=== PATIENT | male | born 1995 | race Caucasian/White ===

== ENCOUNTER 2021-12-18 16:27 | Inpatient (IN) | payer OTHER ==
[~2021-12-18] VITALS: Ht 167.6 cm; Wt 69.0 kg
[2021-12-18 18:41] LABS: BASOPHILS % (AUTO) 0.5 % (0.0-2.0); EOSINOPHILS % (AUTO) 0.9 % (1.0-6.0); HEMATOCRIT 41.1 % (41-53); HEMOGLOBIN 13.7 g/dL (13.5-17.5); LYMPHOCYTES # (AUTO) 1.8 K/uL (1.0-4.8); LYMPHOCYTES % (AUTO) 21.2 % (22.0-44.0); MEAN CORPUSCULAR HEMOGLOBIN 28.3 pg (26.0-34.0); MEAN CORPUSCULAR HGB CONC 33.3 G/dL (31.0-37.0); MEAN CORPUSCULAR VOLUME 85 fL (80-100); MONOCYTES # (AUTO) 1.5 K/uL (0.1-1.0); MONOCYTES % (AUTO) 16.8 % (2.0-9.0); NEUTROPHILS # (AUTO) 5.2 K/uL (1.8-7.7); NEUTROPHILS % (AUTO) 60.6 % (40.0-70.0); PLATELET COUNT (AUTO) 385 K/uL (150-450); RED BLOOD CELL COUNT(AUTO) 4.84 MIL/uL (4.50-5.90); RED CELL DISTRIBUTION WIDTH 12.8 % (11.5-14.5)
[2021-12-18 18:51] LABS: ANION GAP 7 mmol/L (8-16); CALCIUM, TOTAL 9.4 mg/dL (8.8-10.5); CARBON DIOXIDE 29 mmol/L (22-29); CHLORIDE 102 mmol/L (98-107); CREATININE 0.98 mg/dL (0.60-1.30); GLUCOSE,RANDOM 86 mg/dL (70-110); POTASSIUM 4.6 mmol/L (3.5-5.1); SODIUM SERUM 138 mmol/L (136-145); UREA NITROGEN, BLOOD 9 mg/dL (7-18)
[2021-12-18 18:52] LABS: GLOMERULAR FILTR. RATE CALC > 60 mL/min (>60)
[2021-12-18 19:07] LABS: COVID AG,FIA SOURCE NASOPHARYNGEAL
[2021-12-18] MEDS ORDERED: ACETAMINOPHEN 325 MG TABLET PO PRN (20:15)
[2021-12-18] MEDS ORDERED: ONDANSETRON HCL 4 MG/2 ML VIAL IVP PRN ×2 (20:15→20:30)
[2021-12-18 22:48] VITALS: BP 108/77
[2021-12-18] MEDS: HEPARIN SODIUM,PORCINE 5,000 UNITS/ML VIAL SQ SCH (23:42)
[2021-12-19 03:45] VITALS: BP 98/59
[2021-12-19 05:37] LABS: INR 1.1 (0.9-1.1); PROTHROMBIN TIME 11.4 SEC (9.4-11.6)
[2021-12-19] MEDS ORDERED: SODIUM CHLORIDE 3% 15 ML NEB SOLUTION NEB ONE (07:49)
[2021-12-19] MEDS: HEPARIN SODIUM,PORCINE 5,000 UNITS/ML VIAL SQ SCH ×3 (08:00→23:03)
[2021-12-19 08:58] VITALS: BP 123/70
[2021-12-19 12:23] VITALS: BP 127/64
[2021-12-19 16:30] VITALS: BP 110/60
[2021-12-19 19:17] VITALS: BP 115/71
[2021-12-20 00:05] VITALS: BP 114/58
[2021-12-20 04:03] VITALS: BP 99/62
[2021-12-20] MEDS: HEPARIN SODIUM,PORCINE 5,000 UNITS/ML VIAL SQ SCH ×2 (08:00→16:39)
[2021-12-20 08:30] VITALS: BP 116/69
[2021-12-20 12:06] LABS: QUANTIFERON, TB GOLD PLUS Positive (Negative)
[2021-12-20 12:30] VITALS: BP 118/62
[2021-12-20 21:01] VITALS: BP 111/73
[2021-12-21 00:09] VITALS: BP 99/55
[2021-12-21] MEDS: HEPARIN SODIUM,PORCINE 5,000 UNITS/ML VIAL SQ SCH ×4 (00:37→23:32)
[2021-12-21 04:00] VITALS: BP 100/51
[2021-12-21 08:10] LABS: TOTAL PROTEIN, SERUM 7.9 g/dL (6.4-8.2)
[2021-12-21 08:17] VITALS: BP 119/68
[2021-12-21 11:47] VITALS: BP 117/68
[2021-12-21 15:58] VITALS: BP 137/73
[2021-12-21 20:12] VITALS: BP 132/69
[2021-12-22] VITALS (7 sets, daily range): BP systolic 110–127; BP diastolic 62–75
[2021-12-22] MEDS: HEPARIN SODIUM,PORCINE 5,000 UNITS/ML VIAL SQ SCH ×3 (08:40→23:45)
[2021-12-23 02:48] VITALS: BP 128/72
[2021-12-23] MEDS: HEPARIN SODIUM,PORCINE 5,000 UNITS/ML VIAL SQ SCH ×3 (08:00→23:57)
[2021-12-23 09:14] VITALS: BP 120/58
[2021-12-23] MEDS ORDERED: LIDOCAINE/PF 1% 5 ML VIAL ONE (13:52)
[2021-12-23 16:32] VITALS: BP 117/64
[2021-12-23 20:00] VITALS: BP 118/53
[2021-12-24] MEDS: ACETAMINOPHEN 325 MG TABLET PO PRN ×2 (00:05→20:28)
[2021-12-24 04:00] VITALS: BP 117/61
[2021-12-24 07:14] VITALS: BP 100/58
[2021-12-24] MEDS: MULTIVITAMINS WITH MINERALS, THERAPEUTIC TABLET PO SCH (08:19)
[2021-12-24] MEDS: HEPARIN SODIUM,PORCINE 5,000 UNITS/ML VIAL SQ SCH ×3 (08:19→23:57)
[2021-12-24] MEDS: DOCUSATE SODIUM 100 MG CAPSULE PO SCH (08:19)
[2021-12-24 09:07] LABS: HIV 1-2 SCREEN 4TH GEN W/RFLX Non Reactive (Non Reactive)
[2021-12-24 09:31] LABS: SPECIMENTYPE,BODY FLUID PLEURAL
[2021-12-24 12:51] LABS: APPEARANCE,SPUN,BODY FLUID CLEAR (CLEAR); APPEARANCE,UNSPUN,BODY FLUID SLIGHTLY CLOUDY (CLEAR); COLOR,BODY FLUID YELLOW (LT YELLOW); TOTAL VOLUME,BODY FLUID 450 mL
[2021-12-24 12:52] LABS: BASOPHILS,BODY FLUID 0 %; EOSINOPHILS,BF (ANAL) 0 %; LYMPHOCYTES,BODY FLUID 88 %; MONOCYTES,BODY FLUID 7 %; NEUTROPHILS,BODY FLUID 0 %; OTHER CELLS,BODY FLUID 5; PH, BODY FLUID 8; WBC, BODY FLUID 1122 /cu. mm.
[2021-12-24 15:25] VITALS: BP 113/66
[2021-12-24 20:18] VITALS: BP 115/67
[2021-12-25 04:10] VITALS: BP 112/58
[2021-12-25 07:36] VITALS: BP 116/60
[2021-12-25] MEDS: HEPARIN SODIUM,PORCINE 5,000 UNITS/ML VIAL SQ SCH ×2 (10:43→17:38)
[2021-12-25] MEDS: DOCUSATE SODIUM 100 MG CAPSULE PO SCH (10:43)
[2021-12-25] MEDS: MULTIVITAMINS WITH MINERALS, THERAPEUTIC TABLET PO SCH (10:43)
[2021-12-25 15:15] VITALS: BP 122/64
[2021-12-25 20:00] VITALS: BP 131/67
[2021-12-26] MEDS: HEPARIN SODIUM,PORCINE 5,000 UNITS/ML VIAL SQ SCH ×3 (00:23→15:31)
[2021-12-26] MEDS: ACETAMINOPHEN 325 MG TABLET PO PRN (00:26)
[2021-12-26 04:00] VITALS: BP 107/66
[2021-12-26 08:06] VITALS: BP 109/63
[2021-12-26] MEDS: MULTIVITAMINS WITH MINERALS, THERAPEUTIC TABLET PO SCH (09:01)
[2021-12-26] MEDS: DOCUSATE SODIUM 100 MG CAPSULE PO SCH (09:01)
[2021-12-26] MEDS: PYRIDOXINE HCL 50 MG TABLET PO SCH (11:30)
[2021-12-26] MEDS: PYRAZINAMIDE 500 MG TABLET PO SCH (11:31)
[2021-12-26] MEDS: ISONIAZID 300 MG TABLET PO SCH (11:31)
[2021-12-26] MEDS: ETHAMBUTOL HCL 400 MG TABLET PO SCH (11:31)
[2021-12-26] MEDS: RIFAMPIN 300 MG CAPSULE PO SCH (11:31)
[2021-12-26 12:28] LABS: ALANINE AMINOTRANSFERASE 25 U/L (12-78); ALBUMIN 3.1 g/dL (3.4-5.0); ALKALINE PHOSPHATASE 90 U/L (46-116); ANION GAP 7 mmol/L (8-16); ASPARTATE AMINOTRANSFERASE 12 U/L (15-37); BILIRUBIN,TOTAL 0.2 mg/dL (0.1-1.0); CALCIUM, TOTAL 9.3 mg/dL (8.8-10.5); CARBON DIOXIDE 30 mmol/L (22-29); CHLORIDE 100 mmol/L (98-107); CREATININE 0.94 mg/dL (0.60-1.30); GLUCOSE,RANDOM 80 mg/dL (70-110); POTASSIUM 4.1 mmol/L (3.5-5.1); SODIUM SERUM 137 mmol/L (136-145); UREA NITROGEN, BLOOD 10 mg/dL (7-18)
[2021-12-26 12:29] LABS: GLOMERULAR FILTR. RATE CALC > 60 mL/min (>60)
[2021-12-26 15:51] VITALS: BP 117/65
[2021-12-26 19:16] VITALS: BP 122/56
[2021-12-27] MEDS: HEPARIN SODIUM,PORCINE 5,000 UNITS/ML VIAL SQ SCH ×4 (00:20→23:27)
[2021-12-27 00:33] VITALS: BP 117/68
[2021-12-27] MEDS: ACETAMINOPHEN 325 MG TABLET PO PRN ×2 (00:34→23:31)
[2021-12-27 07:57] VITALS: BP 132/68
[2021-12-27] MEDS: MULTIVITAMINS WITH MINERALS, THERAPEUTIC TABLET PO SCH (09:30)
[2021-12-27] MEDS: RIFAMPIN 300 MG CAPSULE PO SCH (09:30)
[2021-12-27] MEDS: PYRIDOXINE HCL 50 MG TABLET PO SCH (09:30)
[2021-12-27] MEDS: DOCUSATE SODIUM 100 MG CAPSULE PO SCH (09:30)
[2021-12-27] MEDS: ISONIAZID 300 MG TABLET PO SCH (09:30)
[2021-12-27] MEDS: ETHAMBUTOL HCL 400 MG TABLET PO SCH (09:31)
[2021-12-27 15:59] VITALS: BP 126/71
[2021-12-27 19:30] VITALS: BP 134/66
[2021-12-28 04:00] VITALS: BP 116/70
[2021-12-28 07:27] VITALS: BP 114/61
[2021-12-28 08:03] LABS: ANION GAP 6 mmol/L (8-16); CALCIUM, TOTAL 9.1 mg/dL (8.8-10.5); CARBON DIOXIDE 29 mmol/L (22-29); CHLORIDE 101 mmol/L (98-107); CREATININE 0.97 mg/dL (0.60-1.30); GLUCOSE,RANDOM 82 mg/dL (70-110); POTASSIUM 3.8 mmol/L (3.5-5.1); SODIUM SERUM 136 mmol/L (136-145); UREA NITROGEN, BLOOD 10 mg/dL (7-18)
[2021-12-28 08:05] LABS: BASOPHILS % (AUTO) 0.5 % (0.0-2.0); EOSINOPHILS % (AUTO) 1.1 % (1.0-6.0); GLOMERULAR FILTR. RATE CALC > 60 mL/min (>60); HEMATOCRIT 40.9 % (41-53); HEMOGLOBIN 13.7 g/dL (13.5-17.5); LYMPHOCYTES # (AUTO) 1.9 K/uL (1.0-4.8); LYMPHOCYTES % (AUTO) 25.1 % (22.0-44.0); MEAN CORPUSCULAR HEMOGLOBIN 28.3 pg (26.0-34.0); MEAN CORPUSCULAR HGB CONC 33.5 G/dL (31.0-37.0); MEAN CORPUSCULAR VOLUME 84 fL (80-100); MONOCYTES % (AUTO) 13.4 % (2.0-9.0); NEUTROPHILS # (AUTO) 4.6 K/uL (1.8-7.7); NEUTROPHILS % (AUTO) 59.9 % (40.0-70.0); PLATELET COUNT (AUTO) 437 K/uL (150-450); RED BLOOD CELL COUNT(AUTO) 4.85 MIL/uL (4.50-5.90); RED CELL DISTRIBUTION WIDTH 13.1 % (11.5-14.5)
[2021-12-28] MEDS: DOCUSATE SODIUM 100 MG CAPSULE PO SCH (08:40)
[2021-12-28] MEDS: ETHAMBUTOL HCL 400 MG TABLET PO SCH (08:40)
[2021-12-28] MEDS: RIFAMPIN 300 MG CAPSULE PO SCH (08:40)
[2021-12-28] MEDS: MULTIVITAMINS WITH MINERALS, THERAPEUTIC TABLET PO SCH (08:40)
[2021-12-28] MEDS: PYRIDOXINE HCL 50 MG TABLET PO SCH (08:40)
[2021-12-28] MEDS: PYRAZINAMIDE 500 MG TABLET PO SCH (08:40)
[2021-12-28] MEDS: HEPARIN SODIUM,PORCINE 5,000 UNITS/ML VIAL SQ SCH ×3 (08:41→21:34)
[2021-12-28] MEDS: ISONIAZID 300 MG TABLET PO SCH (08:41)
[2021-12-28 16:28] VITALS: BP 124/63
[2021-12-28 20:37] VITALS: BP 116/66
[2021-12-28] MEDS: ACETAMINOPHEN 325 MG TABLET PO PRN (21:37)
[2021-12-29 07:41] VITALS: BP 108/64
[2021-12-29] MEDS: RIFAMPIN 300 MG CAPSULE PO SCH (08:47)
[2021-12-29] MEDS: DOCUSATE SODIUM 100 MG CAPSULE PO SCH (08:48)
[2021-12-29] MEDS: HEPARIN SODIUM,PORCINE 5,000 UNITS/ML VIAL SQ SCH ×3 (08:48→23:23)
[2021-12-29] MEDS: MULTIVITAMINS WITH MINERALS, THERAPEUTIC TABLET PO SCH (08:48)
[2021-12-29] MEDS: ISONIAZID 300 MG TABLET PO SCH (08:48)
[2021-12-29] MEDS: ETHAMBUTOL HCL 400 MG TABLET PO SCH (08:48)
[2021-12-29] MEDS: PYRIDOXINE HCL 50 MG TABLET PO SCH (08:48)
[2021-12-29 16:14] VITALS: BP 114/68
[2021-12-29 20:05] VITALS: BP 116/65
[2021-12-30 05:25] VITALS: BP 109/61
[2021-12-30 08:11] VITALS: BP 110/67
[2021-12-30] MEDS: ETHAMBUTOL HCL 400 MG TABLET PO SCH (08:20)
[2021-12-30] MEDS: PYRAZINAMIDE 500 MG TABLET PO SCH (08:22)
[2021-12-30] MEDS: RIFAMPIN 300 MG CAPSULE PO SCH (08:22)
[2021-12-30] MEDS: ISONIAZID 300 MG TABLET PO SCH (08:24)
[2021-12-30] MEDS: DOCUSATE SODIUM 100 MG CAPSULE PO SCH (08:24)
[2021-12-30] MEDS: MULTIVITAMINS WITH MINERALS, THERAPEUTIC TABLET PO SCH (08:24)
[2021-12-30] MEDS: PYRIDOXINE HCL 50 MG TABLET PO SCH (08:25)
[2021-12-30] MEDS: HEPARIN SODIUM,PORCINE 5,000 UNITS/ML VIAL SQ SCH ×2 (08:25→16:00)
[2021-12-30 16:15] VITALS: BP 114/57
[2021-12-30 19:40] VITALS: BP 116/65
[2021-12-30] MEDS: ACETAMINOPHEN 325 MG TABLET PO PRN (20:05)
[2021-12-31] MEDS: HEPARIN SODIUM,PORCINE 5,000 UNITS/ML VIAL SQ SCH ×3 (00:26→15:44)
[2021-12-31 04:15] VITALS: BP 104/59
[2021-12-31 07:49] VITALS: BP 109/65
[2021-12-31] MEDS: DOCUSATE SODIUM 100 MG CAPSULE PO SCH (08:24)
[2021-12-31] MEDS: RIFAMPIN 300 MG CAPSULE PO SCH (08:24)
[2021-12-31] MEDS: PYRIDOXINE HCL 50 MG TABLET PO SCH (08:24)
[2021-12-31] MEDS: MULTIVITAMINS WITH MINERALS, THERAPEUTIC TABLET PO SCH (08:24)
[2021-12-31] MEDS: ETHAMBUTOL HCL 400 MG TABLET PO SCH (08:24)
[2021-12-31] MEDS: ISONIAZID 300 MG TABLET PO SCH (08:24)
[2021-12-31] MEDS ORDERED: ISON300 PO (15:10)
[2021-12-31] MEDS ORDERED: PYRA500 PO (15:11)
[2021-12-31] MEDS ORDERED: RIFA300 PO (15:11)
[2021-12-31] MEDS ORDERED: ETHA100 PO (15:12)
[2021-12-31] MEDS ORDERED: MULT-248 PO (15:14)
[2021-12-31] MEDS ORDERED: PYRI-6 PO (15:15)
[2021-12-31] MEDS ORDERED: ACET-784 PO (15:18)
[2021-12-31 15:32] VITALS: BP 118/62
== END 2021-12-31 17:25 | DRG 187 ==
LOC: EMS 16:34 → 5N 20:20 → 6S 12-23 02:19
PROVIDERS: ADMIT Internal Medicine; ATTEND Internal Medicine
PROC: 0W9B3ZX Drainage of Left Pleural Cavity, Percutaneous Approach, Diagnostic (ICD-10-PCS; principal; 2021-12-23)
DX: J90 Pleural effusion, not elsewhere classified (principal); J98.11 Atelectasis; R76.11 Nonspecific reaction to tuberculin skin test without active tuberculosis; Z20.822 Contact with and (suspected) exposure to COVID-19; R91.1 Solitary pulmonary nodule; Z78.9 Other specified health status; Z87.891 Personal history of nicotine dependence
CPT/HCPCS: 32555; 71045; 71046; 71250; 76942; 80048; 80053; 82465; 82945; 83615; 83986; 84155; 84157; 84484; 85025; 85610; 85730; 86480; 87015; 87075; 87101; 87205; 87206; 87389; 87556; 88108; 88112; 88305; 89051; 93005; 94640; 99285; J1644; J2001; 36415-L1; 36415-TC; 87070

== ENCOUNTER 2022-09-15 17:18 | Inpatient (IN) | payer OTHER ==
[~2022-09-15] VITALS: Ht 165.1 cm; Wt 70.4 kg
[~2022-09-15 17:18] MED LIST: ACET-784 PO; ETHA100 PO; ISON300 PO; MULT-248 PO; PYRA500T33 PO; PYRI-6 PO; RIFA300C36 PO
[2022-09-15 21:34] LABS: BASOPHILS % (AUTO) 0.4 % (0.0-2.0); EOSINOPHILS % (AUTO) 0.5 % (1.0-6.0); HEMATOCRIT 45.1 % (41-53); HEMOGLOBIN 15.3 g/dL (13.5-17.5); LYMPHOCYTES # (AUTO) 3.1 K/uL (1.0-4.8); LYMPHOCYTES % (AUTO) 35.7 % (22.0-44.0); MEAN CORPUSCULAR HEMOGLOBIN 30.4 pg (26.0-34.0); MEAN CORPUSCULAR HGB CONC 33.8 G/dL (31.0-37.0); MEAN CORPUSCULAR VOLUME 90 fL (80-100); MONOCYTES # (AUTO) 0.6 K/uL (0.1-1.0); NEUTROPHILS # (AUTO) 4.9 K/uL (1.8-7.7); NEUTROPHILS % (AUTO) 56.4 % (40.0-70.0); PLATELET COUNT (AUTO) 281 K/uL (150-450); RED BLOOD CELL COUNT(AUTO) 5.02 MIL/uL (4.50-5.90); RED CELL DISTRIBUTION WIDTH 12.9 % (11.5-14.5)
[2022-09-15 21:42] LABS: ANION GAP 10 mmol/L (8-16); CALCIUM, TOTAL 9.6 mg/dL (8.8-10.5); CARBON DIOXIDE 28 mmol/L (22-29); CHLORIDE 104 mmol/L (98-107); CREATININE 1.12 mg/dL (0.60-1.30); GLOMERULAR FILTR. RATE CALC > 60 mL/min (>60); GLUCOSE,RANDOM 87 mg/dL (70-110); POTASSIUM 3.8 mmol/L (3.5-5.1); SODIUM SERUM 142 mmol/L (136-145); UREA NITROGEN, BLOOD 11 mg/dL (7-18)
[2022-09-15 21:48] LABS: ALANINE AMINOTRANSFERASE 20 U/L (12-78); ALBUMIN 4.5 g/dL (3.4-5.0); ALKALINE PHOSPHATASE 98 U/L (46-116); ASPARTATE AMINOTRANSFERASE 12 U/L (15-37); BILIRUBIN,TOTAL 0.5 mg/dL (0.1-1.0); TOTAL PROTEIN, SERUM 8.2 g/dL (6.4-8.2)
[2022-09-15] MEDS ORDERED: ONDANSETRON HCL 4 MG/2 ML VIAL IVP PRN (23:45)
[2022-09-15] MEDS ORDERED: ACETAMINOPHEN 325 MG TABLET PO PRN (23:45)
[2022-09-15] MEDS ORDERED: 0.9% SODIUM CHLORIDE 10 ML SYRINGE IVP PRN (23:45)
[2022-09-16 00:49] LABS: COVID AG,FIA SOURCE NASAL SWAB
[2022-09-16 01:00] VITALS: BP 108/56
[2022-09-16] MEDS ORDERED: ONDANSETRON HCL 4 MG/2 ML VIAL IVP PRN (07:30)
[2022-09-16] MEDS ORDERED: MAGNESIUM HYDROXIDE SUSPENSION 30 ML UDCUP PO PRN (07:30)
[2022-09-16] MEDS ORDERED: ACETAMINOPHEN 325 MG TABLET PO PRN (07:30)
[2022-09-16] MEDS: FAMOTIDINE 20 MG TABLET PO SCH (08:55)
[2022-09-16 15:04] VITALS: BP 118/68
[2022-09-16 20:00] VITALS: BP 123/75
[2022-09-17 04:00] VITALS: BP 118/62
[2022-09-17 08:05] VITALS: BP 134/58
[2022-09-17] MEDS: FAMOTIDINE 20 MG TABLET PO SCH (09:13)
[2022-09-17 12:16] VITALS: BP 129/70
[2022-09-17 16:16] VITALS: BP 134/81
[2022-09-17 20:21] VITALS: BP 113/62
[2022-09-18 04:56] VITALS: BP 121/71
[2022-09-18 08:19] VITALS: BP 110/68
[2022-09-18] MEDS: FAMOTIDINE 20 MG TABLET PO SCH (08:57)
[2022-09-18 11:27] VITALS: BP 105/75
[2022-09-18 15:28] VITALS: BP 110/78
[2022-09-18 19:53] VITALS: BP 117/71
[2022-09-19 05:10] VITALS: BP 117/71
[2022-09-19 08:21] VITALS: BP 114/68
[2022-09-19] MEDS: FAMOTIDINE 20 MG TABLET PO SCH (08:40)
[2022-09-19 16:14] VITALS: BP 101/76
[2022-09-19 17:07] LABS: QUANTIFERON, TB GOLD PLUS Positive (Negative)
[2022-09-19 19:30] VITALS: BP 157/68
[2022-09-20 04:10] VITALS: BP 113/66
[2022-09-20 08:00] VITALS: BP 123/77
[2022-09-20] MEDS: FAMOTIDINE 20 MG TABLET PO SCH (08:26)
[2022-09-20 15:41] VITALS: BP 126/59
[2022-09-20 19:51] VITALS: BP 117/53
[2022-09-21 04:37] VITALS: BP 112/61
[2022-09-21 08:04] VITALS: BP 121/50
[2022-09-21] MEDS: FAMOTIDINE 20 MG TABLET PO SCH (09:27)
[2022-09-21 15:32] VITALS: BP 101/47
[2022-09-21 19:35] VITALS: BP 123/63
[2022-09-22 04:05] VITALS: BP 121/69
[2022-09-22 08:09] VITALS: BP 120/50
[2022-09-22] MEDS: FAMOTIDINE 20 MG TABLET PO SCH (08:57)
[2022-09-22 16:07] VITALS: BP 120/50
[2022-09-22 20:36] VITALS: BP 127/88
[2022-09-23 04:56] VITALS: BP 121/63
[2022-09-23 08:21] VITALS: BP 129/73
[2022-09-23] MEDS: FAMOTIDINE 20 MG TABLET PO SCH (09:12)
[2022-09-23 15:36] VITALS: BP 118/64
[2022-09-23 20:37] VITALS: BP 117/63
[2022-09-24 04:39] VITALS: BP 109/66
[2022-09-24] MEDS: FAMOTIDINE 20 MG TABLET PO SCH (07:55)
[2022-09-24 08:04] VITALS: BP 117/64
[2022-09-24 19:53] VITALS: BP 119/64
[2022-09-25 03:53] VITALS: BP 122/73
[2022-09-25 07:30] VITALS: BP 103/59
[2022-09-25] MEDS: FAMOTIDINE 20 MG TABLET PO SCH (08:52)
[2022-09-25 15:26] VITALS: BP 109/76
[2022-09-25 19:41] VITALS: BP 127/71
[2022-09-26 04:18] VITALS: BP 115/50
[2022-09-26 08:06] VITALS: BP 128/70
[2022-09-26] MEDS: FAMOTIDINE 20 MG TABLET PO SCH (08:53)
[2022-09-26 20:37] VITALS: BP 124/73
[2022-09-27 04:52] VITALS: BP 117/54
[2022-09-27 07:30] VITALS: BP 122/49
[2022-09-27 08:06] LABS: HIV 1-2 SCREEN 4TH GEN W/RFLX Non Reactive (Non Reactive)
[2022-09-27] MEDS: FAMOTIDINE 20 MG TABLET PO SCH (08:43)
[2022-09-27 15:43] VITALS: BP 105/49
[2022-09-27 19:50] VITALS: BP 126/71
[2022-09-28 04:10] VITALS: BP_SYST 115; BP_SYST 125; BP_DIAS 108; BP_DIAS 68
[2022-09-28 08:11] VITALS: BP 114/63
[2022-09-28] MEDS: FAMOTIDINE 20 MG TABLET PO SCH (08:26)
[2022-09-28 16:04] VITALS: BP 121/71
[2022-09-28 19:36] VITALS: BP 127/80
[2022-09-29 05:01] VITALS: BP 122/71
[2022-09-29 07:37] VITALS: BP 131/74
[2022-09-29 08:01] LABS: BASOPHILS % (AUTO) 0.4 % (0.0-2.0); HEMATOCRIT 45.8 % (41-53); HEMOGLOBIN 15.9 g/dL (13.5-17.5); LYMPHOCYTES # (AUTO) 2.3 K/uL (1.0-4.8); LYMPHOCYTES % (AUTO) 29.2 % (22.0-44.0); MEAN CORPUSCULAR HEMOGLOBIN 31.1 pg (26.0-34.0); MEAN CORPUSCULAR HGB CONC 34.7 G/dL (31.0-37.0); MEAN CORPUSCULAR VOLUME 90 fL (80-100); MONOCYTES # (AUTO) 0.8 K/uL (0.1-1.0); NEUTROPHILS # (AUTO) 4.6 K/uL (1.8-7.7); NEUTROPHILS % (AUTO) 59.4 % (40.0-70.0); PLATELET COUNT (AUTO) 249 K/uL (150-450); RED CELL DISTRIBUTION WIDTH 13.1 % (11.5-14.5)
[2022-09-29 08:05] LABS: ANION GAP 5 mmol/L (8-16); CALCIUM, TOTAL 9.3 mg/dL (8.8-10.5); CARBON DIOXIDE 30 mmol/L (22-29); CHLORIDE 102 mmol/L (98-107); CREATININE 1.09 mg/dL (0.60-1.30); GLOMERULAR FILTR. RATE CALC > 60 mL/min (>60); GLUCOSE,RANDOM 81 mg/dL (70-110); POTASSIUM 4.2 mmol/L (3.5-5.1); SODIUM SERUM 137 mmol/L (136-145); UREA NITROGEN, BLOOD 14 mg/dL (7-18)
[2022-09-29] MEDS: FAMOTIDINE 20 MG TABLET PO SCH (08:07)
[2022-09-29 19:18] VITALS: BP 126/72
[2022-09-29] MEDS: ZOLPIDEM TARTRATE 5 MG TABLET PO PRN (22:09)
[2022-09-30 07:51] VITALS: BP 118/62
[2022-09-30] MEDS: FAMOTIDINE 20 MG TABLET PO SCH (08:07)
[2022-09-30 16:03] VITALS: BP 111/78
[2022-09-30 19:55] VITALS: BP 122/57
[2022-10-01 04:45] VITALS: BP 106/63
[2022-10-01 07:25] VITALS: BP 108/58
[2022-10-01] MEDS: FAMOTIDINE 20 MG TABLET PO SCH (08:23)
[2022-10-01] MEDS: ZOLPIDEM TARTRATE 5 MG TABLET PO PRN (20:15)
[2022-10-01 20:33] VITALS: BP 113/60
[2022-10-02 03:52] VITALS: BP 105/63
[2022-10-02 07:56] VITALS: BP 116/60
[2022-10-02] MEDS: FAMOTIDINE 20 MG TABLET PO SCH (08:18)
[2022-10-02 15:42] VITALS: BP 109/58
[2022-10-02 19:48] VITALS: BP 131/70
[2022-10-03 04:07] VITALS: BP 121/66
[2022-10-03] MEDS: FAMOTIDINE 20 MG TABLET PO SCH (07:54)
[2022-10-03 08:01] VITALS: BP 125/76
[2022-10-03 10:04] LABS: PROTHROMBIN TIME 10.9 SEC (9.4-11.6)
[2022-10-03 15:09] VITALS: BP 118/60
[2022-10-03 19:35] VITALS: BP 112/68
[2022-10-04 07:57] VITALS: BP 118/66
[2022-10-04] MEDS: FAMOTIDINE 20 MG TABLET PO SCH (08:58)
[2022-10-04 19:41] VITALS: BP 124/66
[2022-10-05 07:47] VITALS: BP 108/80
[2022-10-05] MEDS: FAMOTIDINE 20 MG TABLET PO SCH (07:48)
[2022-10-05 15:09] VITALS: BP 116/67
[2022-10-05 20:13] VITALS: BP 123/70
[2022-10-05] MEDS: ZOLPIDEM TARTRATE 5 MG TABLET PO PRN (22:46)
[2022-10-06 07:59] VITALS: BP 101/70
[2022-10-06] MEDS: FAMOTIDINE 20 MG TABLET PO SCH (09:00)
[2022-10-06] MEDS ORDERED: FLUMAZENIL 0.1 MG/ML 5 ML VIAL IVP ONE (13:11)
[2022-10-06] MEDS ORDERED: LIDOCAINE/PF 1% 5 ML VIAL ONE (13:11)
[2022-10-06] MEDS ORDERED: NALOXONE HCL 0.4 MG/ML VIAL ONE (13:11)
[2022-10-06] MEDS ORDERED: FentaNYL CITRATE PF 100 MCG/2 ML VIAL ONE (13:11)
[2022-10-06] MEDS ORDERED: MIDAZOLAM HCL 2 MG/2 ML VIAL ONE (13:11)
[2022-10-06] MEDS ORDERED: FentaNYL CITRATE PF 100 MCG/2 ML VIAL IVP ONE ×2 (15:45)
[2022-10-06] MEDS ORDERED: MIDAZOLAM HCL 2 MG/2 ML VIAL IVP ONE (15:45)
[2022-10-06 15:51] VITALS: BP 114/61
[2022-10-06 19:29] VITALS: BP 121/65
[2022-10-07 04:06] VITALS: BP 119/68
[2022-10-07 07:20] VITALS: BP 114/56
[2022-10-07] MEDS: FAMOTIDINE 20 MG TABLET PO SCH (08:39)
[2022-10-07 15:04] VITALS: BP 133/61
[2022-10-07 19:50] VITALS: BP 125/69
[2022-10-08 04:12] VITALS: BP 107/72
[2022-10-08 07:35] VITALS: BP 127/78
[2022-10-08] MEDS: FAMOTIDINE 20 MG TABLET PO SCH (08:06)
[2022-10-08 16:31] VITALS: BP 127/78
[2022-10-08 19:20] VITALS: BP 131/67
[2022-10-09 07:36] VITALS: BP 117/57
[2022-10-09] MEDS: FAMOTIDINE 20 MG TABLET PO SCH (08:23)
[2022-10-09 20:36] VITALS: BP 117/65
[2022-10-10 04:59] VITALS: BP 120/72
[2022-10-10] MEDS: FAMOTIDINE 20 MG TABLET PO SCH (08:05)
[2022-10-10 08:06] VITALS: BP 113/74
[2022-10-10 15:47] VITALS: BP 123/63
[2022-10-10 20:57] VITALS: BP 135/62
[2022-10-11 04:24] VITALS: BP 133/66
[2022-10-11] MEDS: FAMOTIDINE 20 MG TABLET PO SCH (07:39)
[2022-10-11 08:07] VITALS: BP 119/63
[2022-10-11 19:58] VITALS: BP 119/73
[2022-10-12 08:00] VITALS: BP 106/68
[2022-10-12] MEDS: FAMOTIDINE 20 MG TABLET PO SCH (08:17)
[2022-10-12 15:47] VITALS: BP 127/64
[2022-10-12 20:20] VITALS: BP 122/70
[2022-10-13 07:39] VITALS: BP 112/74
[2022-10-13] MEDS: FAMOTIDINE 20 MG TABLET PO SCH (08:24)
[2022-10-13 20:13] VITALS: BP 131/71
[2022-10-14 07:32] VITALS: BP 128/74
[2022-10-14] MEDS: FAMOTIDINE 20 MG TABLET PO SCH (08:24)
[2022-10-14 15:37] VITALS: BP 120/55
[2022-10-14 19:50] VITALS: BP 122/73
[2022-10-15 04:30] VITALS: BP 123/66
[2022-10-15] MEDS: FAMOTIDINE 20 MG TABLET PO SCH (07:36)
[2022-10-15 08:51] VITALS: BP 112/61
[2022-10-15 16:01] VITALS: BP 123/52
[2022-10-15 19:57] VITALS: BP 124/58
[2022-10-16 04:03] VITALS: BP 113/57
[2022-10-16 08:20] VITALS: BP 112/55
[2022-10-16] MEDS: FAMOTIDINE 20 MG TABLET PO SCH (09:10)
[2022-10-16] MEDS: PYRAZINAMIDE 500 MG TABLET PO SCH (11:48)
[2022-10-16] MEDS: ISONIAZID 300 MG TABLET PO SCH (11:48)
[2022-10-16] MEDS: MULTIVITAMINS WITH MINERALS, THERAPEUTIC TABLET PO SCH (11:48)
[2022-10-16] MEDS: RIFAMPIN 300 MG CAPSULE PO SCH (11:49)
[2022-10-16] MEDS: ETHAMBUTOL HCL 400 MG TABLET PO SCH (11:49)
[2022-10-16] MEDS: PYRIDOXINE HCL 50 MG TABLET PO SCH (12:17)
[2022-10-16 16:10] VITALS: BP 131/71
[2022-10-16 20:36] VITALS: BP 124/64
[2022-10-16] MEDS: ZOLPIDEM TARTRATE 5 MG TABLET PO PRN (21:04)
[2022-10-17 08:07] VITALS: BP 104/56
[2022-10-17] MEDS: ETHAMBUTOL HCL 400 MG TABLET PO SCH (08:07)
[2022-10-17] MEDS: FAMOTIDINE 20 MG TABLET PO SCH (08:07)
[2022-10-17] MEDS: RIFAMPIN 300 MG CAPSULE PO SCH (08:07)
[2022-10-17] MEDS: ISONIAZID 300 MG TABLET PO SCH (08:07)
[2022-10-17] MEDS: PYRIDOXINE HCL 50 MG TABLET PO SCH (08:07)
[2022-10-17] MEDS: PYRAZINAMIDE 500 MG TABLET PO SCH (08:07)
[2022-10-17] MEDS: MULTIVITAMINS WITH MINERALS, THERAPEUTIC TABLET PO SCH (08:07)
[2022-10-17 20:18] VITALS: BP 125/70
[2022-10-18 08:01] VITALS: BP 116/68
[2022-10-18] MEDS: PYRAZINAMIDE 500 MG TABLET PO SCH (09:21)
[2022-10-18] MEDS: FAMOTIDINE 20 MG TABLET PO SCH (09:21)
[2022-10-18] MEDS: ISONIAZID 300 MG TABLET PO SCH (09:21)
[2022-10-18] MEDS: RIFAMPIN 300 MG CAPSULE PO SCH (09:21)
[2022-10-18] MEDS: MULTIVITAMINS WITH MINERALS, THERAPEUTIC TABLET PO SCH (09:21)
[2022-10-18] MEDS: PYRIDOXINE HCL 50 MG TABLET PO SCH (09:21)
[2022-10-18] MEDS: ETHAMBUTOL HCL 400 MG TABLET PO SCH (09:21)
[2022-10-18 19:47] VITALS: BP 115/61
[2022-10-18] MEDS: ZOLPIDEM TARTRATE 5 MG TABLET PO PRN (21:13)
[2022-10-19 04:03] VITALS: BP 125/78
[2022-10-19 08:45] VITALS: BP 118/64
[2022-10-19] MEDS: ETHAMBUTOL HCL 400 MG TABLET PO SCH (09:26)
[2022-10-19] MEDS: PYRIDOXINE HCL 50 MG TABLET PO SCH (09:26)
[2022-10-19] MEDS: ISONIAZID 300 MG TABLET PO SCH (09:26)
[2022-10-19] MEDS: MULTIVITAMINS WITH MINERALS, THERAPEUTIC TABLET PO SCH (09:26)
[2022-10-19] MEDS: RIFAMPIN 300 MG CAPSULE PO SCH (09:26)
[2022-10-19] MEDS: FAMOTIDINE 20 MG TABLET PO SCH (09:27)
[2022-10-19] MEDS: PYRAZINAMIDE 500 MG TABLET PO SCH (09:27)
[2022-10-19 19:45] VITALS: BP 126/70
[2022-10-20 04:20] VITALS: BP 117/68
[2022-10-20 07:56] VITALS: BP 110/71
[2022-10-20] MEDS: PYRIDOXINE HCL 50 MG TABLET PO SCH (08:11)
[2022-10-20] MEDS: MULTIVITAMINS WITH MINERALS, THERAPEUTIC TABLET PO SCH (08:11)
[2022-10-20] MEDS: RIFAMPIN 300 MG CAPSULE PO SCH (08:11)
[2022-10-20] MEDS: PYRAZINAMIDE 500 MG TABLET PO SCH (08:11)
[2022-10-20] MEDS: ETHAMBUTOL HCL 400 MG TABLET PO SCH (08:11)
[2022-10-20] MEDS: FAMOTIDINE 20 MG TABLET PO SCH (08:11)
[2022-10-20] MEDS: ISONIAZID 300 MG TABLET PO SCH (08:11)
[2022-10-20 20:01] VITALS: BP 121/72
[2022-10-21 04:01] VITALS: BP 118/59
[2022-10-21 07:22] VITALS: BP 132/67
[2022-10-21] MEDS: MULTIVITAMINS WITH MINERALS, THERAPEUTIC TABLET PO SCH (08:29)
[2022-10-21] MEDS: ETHAMBUTOL HCL 400 MG TABLET PO SCH (08:29)
[2022-10-21] MEDS: RIFAMPIN 300 MG CAPSULE PO SCH (08:29)
[2022-10-21] MEDS: ISONIAZID 300 MG TABLET PO SCH (08:29)
[2022-10-21] MEDS: FAMOTIDINE 20 MG TABLET PO SCH (08:29)
[2022-10-21] MEDS: PYRIDOXINE HCL 50 MG TABLET PO SCH (08:29)
[2022-10-21] MEDS: PYRAZINAMIDE 500 MG TABLET PO SCH (08:29)
[2022-10-21 15:04] VITALS: BP 109/55
== END 2022-10-21 17:00 | DRG 178 ==
LOC: EMS 17:19 → 5N 09-16 00:01 → 6S 09-18 11:57 → 6N 09-18 15:27 → 6S 10-07 11:25
PROVIDERS: ADMIT Internal Medicine; ATTEND Hospitalist
PROC: 0BBL3ZX Excision of Left Lung, Percutaneous Approach, Diagnostic (ICD-10-PCS; principal; 2022-10-06)
DX: J85.0 Gangrene and necrosis of lung (principal); A15.9 Respiratory tuberculosis unspecified; J90 Pleural effusion, not elsewhere classified; R91.1 Solitary pulmonary nodule; F15.90 Other stimulant use, unspecified, uncomplicated; J92.9 Pleural plaque without asbestos; Z20.822 Contact with and (suspected) exposure to COVID-19; Z86.11 Personal history of tuberculosis; Z86.16 Personal history of COVID-19; Z79.899 Other long term (current) drug therapy
CPT/HCPCS: 32408; 71045; 71250; 80048; 80053; 85025; 85610; 86480; 87015; 87081; 87206; 87389; 87556; 88305; 88312; 94640; 99285; G0238; J2001; J2250; J2310; J3010; J3490; 36415-L1; 36415-TC